=== PATIENT | female | born 1965 | race African-American/Black ===

== ENCOUNTER 2018-07-18 12:58 | Emergency (ER) | payer MEDICAID, OTHER ==
[~2018-07-18] VITALS: Ht 167.6 cm; Wt 79.4 kg
[~2018-07-18 12:58] MED LIST: AMOXICILLIN500 MG ORAL; BENADRYL25 M3 PO; IBUPROFEN800 MG ORAL; NKM
[2018-07-18 13:09] VITALS: BP 162/99
[2018-07-18] MEDS ORDERED: Methocarbamol 750mg tab ORAL ONE (13:45)
[2018-07-18] MEDS ORDERED: IBUPROFEN600 MG ORAL (14:28)
[2018-07-18] MEDS ORDERED: ROBAXIN500 MG PO (14:28)
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
[2018-07-18] MEDS ORDERED: LIDODERM700 M1 TOPIC (14:29)
[2018-07-18 14:46] VITALS: BP 158/89
== END 2018-07-18 14:47 | disposition home or self-care (01) ==
LOC: EMR 13:45
DX: S16.1XXA Strain of muscle, fascia and tendon at neck level, initial encounter (principal); M62.830 Muscle spasm of back; V43.52XA Car driver injured in collision with other type car in traffic accident, initial encounter; Y92.410 Unspecified street and highway as the place of occurrence of the external cause
CPT/HCPCS: 99282

== ENCOUNTER 2019-01-20 13:07 | Emergency (ER) | payer MEDICAID ==
[~2019-01-20] VITALS: Ht 170.2 cm; Wt 80.7 kg
[~2019-01-20 13:07] MED LIST changes: +IBUPROFEN600 MG ORAL; +LIDODERM700 M1 TOPIC; +ROBAXIN500 MG PO
[2019-01-20 13:15] VITALS: BP 167/92
--- NOTE | 2019-01-20 13:15 | NUR ---
ED Nurse Note: Patient walked in to ER c/o abscess on vaginal area. pt aao x4 and reported that she noticed 2 days ago and pain level 7/10. skin clean and intact.
[2019-01-20] MEDS ORDERED: NKM (13:18)
--- NOTE | 2019-01-20 13:30 | NUR ---
ED Nurse Note: Examination done by ERPA with female RN present in the room. 1.5cm x 1.5cm abscess noted on Rt labia majora. pt was explained about options for treatment and pt refused procedure to drain the drainage due to fear for pain and cutting and opening the skin.
--- NOTE | 2019-01-20 13:32 | Emergency Room Report ---
History of Present Illness General Chief Complaint: Skin Rash/Abscess Source: Patient Present Illness HPI 53-year-old female patient presents the ER complaining of "bump" in the pelvic region for the past 2 days. Reports history of similar symptoms in the past. Denies drainage. Reports she is shaved in the pelvic region. Reports "I think is turning into an abscess". Reports any sexual monogamous relationship, states uses condoms during sex. Denies concern for STI. Denies dysuria, hematuria, vaginal discharge. Denies discharge from bump. Denies abdominal pain or flank pain. Denies other aggravating or relieving factors. Allergies: Coded Allergies: No Known Allergies (Unverified , 07/18/18) Patient History Past Medical History: see triage record Last Menstrual Period: menopause Reviewed Nursing Documentation: PMH: Agreed; PSxH: Agreed Nursing Documentation-PMH Past Medical History: No Stated History Review of Systems All Other Systems: negative except mentioned in HPI Physical Exam Vital Signs Date Time Temp Pulse Resp B/P (MAP) Pulse Ox O2 Delivery O2 Flow Rate FiO2 01/20/19 13:10 98.1 88 14 167/92 99 Room Air Sp02 EP Interpretation: reviewed, normal General Appearance: well appearing, no apparent distress, alert, GCS 15, non- toxic Head: normocephalic, atraumatic Eyes: bilateral eye normal inspection, bilateral eye PERRL ENT: hearing grossly normal, normal pharynx, no angioedema, normal voice, uvula midline, moist mucus membranes Neck: full range of motion Respiratory: lungs clear, normal breath sounds, no rhonchi, no respiratory distress, no accessory muscle use, no wheezing, speaking full sentences Cardiovascular #1: regular rate, rhythm, no edema Genitourinary: no CVA tenderness, other - No Bartholin cyst or abscess Musculoskeletal: back normal, digits/nails normal, gait/station normal, normal range of motion, non-tender Neurologic: alert, oriented x3, responsive, motor strength/tone normal, sensory intact Skin: other - Small 1 cm fluctuant abscess on right external labial fold, no overlying erythema or surrounding erythema or edema, no Bartholin cysts Procedures Incision and Drainage Incision and Drainage : Consent: Verbal Site: external left labial fold Blade Size: 11 I & D Procedure: betadine prep, sterile drapes applied, sterile dressing applied Wound Location: other - labial fold Wound's Depth, Shape: superficial Wound Length (cm): 1 Wound Explored: contaminated Irrigated w/ Saline (ccs): 10 Anesthesia: 1% Lidocaine Splint Applied?: No Sling Applied?: No Patient Tolerated: Well Complications: None Medical Decision Making PA Attestation Dr. Grissom is my supervising Physician whom patient management has been discussed with. Diagnostic Impression: Primary Impression: Abscess ER Course Pt. presents to the ED c/o bump on external right pelvic region. Ddx considered but are not limited to rash, cellulitis, abscess, sebaceous cyst , carbuncle, folliculitis, Bartholin cyst, Bartholin abscess. Does not require imaging at this time. Vital signs: are WNL, pt. is afebrile ED INTERVENTIONS: Ibuprofen for pain Local block of abscess performed with lidocaine. I&D of abscess performed. Pus expressed. See procedure note. Wound check in 2-3 days. ER precautions given. DISCHARGE: -Rx provided for clindamycin -Rx provided for Ibuprofen -Rx provided for Bacitracin At this time pt. is stable for d/c to home. Patient is resting comfortably, in no acute distress, nontoxic appearing. Will provide printed patient care instructions and any necessary prescriptions. Care plan and follow up instructions have been discussed with the patient prior to discharge. Patient instructed to follow-up with primary care provider in 2 - 3 days for wound recheck. Patient questions asked and answered. Patient reports understanding and agreement to treatment plan. ER precautions given. Patient instructed to return to ER immediately for any new or worsening of symptoms including but not limited to fever, worsening of pain symptoms, worsening of erythema, red streaking. - Please note that this Emergency Department Report was dictated using [employer] officer technology software, occasionally this can lead to erroneous entry secondary to interpretation by the dictation equipment. Last Vital Signs Date Time Temp Pulse Resp B/P (MAP) Pulse Ox O2 Delivery O2 Flow Rate FiO2 01/20/19 13:10 98.1 88 14 167/92 99 Room Air Status: improved Disposition: HOME, SELF-CARE Condition: Stable Scripts Clindamycin HCl (Clindamycin HCl) 300 Mg Capsule 300 MG ORAL EVERY 6 HOURS for 7 Days, #28 CAP Prov: Shai Borrego 01/20/19 Bacitracin/Polymyxin B Sulfate (BACITRACIN-POLYMYXIN OINTMENT) 28.35 Gm Oint...g. 1 APPLIC TP BID, #28 GM Prov: Shai Borrego 01/20/19 Ibuprofen* (MOTRIN*) 600 Mg Tablet 600 MG ORAL Q8H PRN for For Pain, #30 TAB 0 Refills Prov: Shai Borrego 01/20/19 Patient Instructions: Abscess Additional Instructions: Followup with PCP in 2-3 days for wound check. Take medications as instructed. Patient questions asked and answered. Apply warm compresses to affected area. Keep wound clean and dry. ER precautions given. Return to ER for new or worsening of symptoms including but not limited to chest pain, SOB, red streaking, worsening of abscess, intractible vomiting. Shai Borrego Jan 20, 2019 13:32
--- NOTE | 2019-01-20 13:50 | NUR ---
ED Nurse Note: Toradol 30mg IM shot given with explanation. pt verbalized understanding.
[2019-01-20] MEDS: Lidocaine 1% MPF 10mg/ml 5ml IM ONE ×2 (13:54→14:11)
[2019-01-20] MEDS ORDERED: Ketorolac 30mg Inj IM ONE (14:00)
[2019-01-20] MEDS ORDERED: CLINDAMYCIN HC150 MG ORAL (14:34)
[2019-01-20] MEDS ORDERED: BACITRACIN-P28.35 GM TP (14:34)
[2019-01-20] MEDS ORDERED: IBUPROFEN600 MG ORAL (14:34)
[2019-01-20] MEDS ORDERED: CLEOCIN150 MG ORAL (14:35)
--- NOTE | 2019-01-20 14:39 | NUR ---
ED Nurse Note: Abscess was open and cut. drainage was drained out by ERPA with female RN present in the room during the whole procedure.
[2019-01-20 14:55] VITALS: BP 135/82
--- NOTE | 2019-01-20 14:55 | NUR ---
ER DISCHARGE NOTE: Patient is cleared to be discharged per ERPA after procedure, no s/s of infection noted, pt is aox4, on room air, with stable vital signs. pt was given dc and instructions and prescriptions sent to pharmacy electronically and pt noted the location of pharmacy, pt was able to verbalize understanding, pt id band removed. pt is able to ambulate with steady gait. pt took all belongings.
== END 2019-01-20 14:55 | disposition home or self-care (01) ==
LOC: EMR 13:41
DX: N76.4 Abscess of vulva (principal)
CPT/HCPCS: 10060; 96372; 99283; J1885